=== PATIENT | male | born 1985 | race Asian ===

== ENCOUNTER 2017-03-13 19:19 | Inpatient (IN) | payer SELFPAY ==
[~2017-03-13] VITALS: Ht 172.7 cm; Wt 81.6 kg
--- NOTE | 2017-03-13 19:36 | Emergency Room Report ---
History of Present Illness General Chief Complaint: Abdominal Pain Source: Patient Present Illness [facility] Patient presents with complaints of epigastric abdominal pain Ongoing since Wednesday patient reports that he did have a alcohol binge drinking just before that Denies any diarrhea denies any lower abdominal pain Pain is 8/10 epigastric denies any radiation denies any fevers or chills Patient reports that he has had this before however a past Patient does report heavy drinking intermittently Allergies: Coded Allergies: No Known Allergies (Unverified , 03/13/17) Patient History Past Medical History: see triage record Pertinent Family History: none Reviewed Nursing Documentation: PMH: Agreed, PSxH: Agreed Nursing Documentation-PMH Past Medical History: No Stated History Review of Systems All Other Systems: negative except mentioned in HPI Physical Exam Vital Signs Date Time Temp Pulse Resp B/P (MAP) Pulse Ox O2 Delivery O2 Flow Rate FiO2 03/13/17 19:25 97.9 116 17 144/90 98 Room Air Sp02 EP Interpretation: reviewed, normal General Appearance: no apparent distress Head: normocephalic, atraumatic Eyes: bilateral eye PERRL, bilateral eye EOMI ENT: hearing grossly normal, normal pharynx, TMs + canals normal, uvula midline Neck: full range of motion, supple, no meningismus, no bony tend Respiratory: lungs clear, normal breath sounds, no rhonchi, no respiratory distress, no retraction, no accessory muscle use Cardiovascular #1: normal peripheral pulses, regular rate, rhythm, no edema, no gallop, no JVD, no murmur Gastrointestinal: normal bowel sounds, soft, no mass, no organomegaly, non- distended, no guarding, no hernia, no pulsatile mass, no rebound, tenderness - epigastric region Genitourinary: no CVA tenderness Musculoskeletal: normal inspection Neurologic: oriented x3, responsive, institute scientist III-XII nml as tested, motor strength/ tone normal, sensory intact Psychiatric: mood/affect normal Skin: no rash, warm/dry, palpation normal, jaundice Lymphatic: normal inspection, no adenopathy Medical Decision Making Diagnostic Impression: Primary Impression: Gallstone pancreatitis ER Course With the history exam and presentation, multiple differentials considered, including but not limited to appendicitis, gastritis, cholecystitis, diverticulitis Patient's blood work reveals elevated liver function test including lipase which raises concern of biliary of traction CAT scan also reveals evidence of pancreatitis Ultrasound will be obtained as inpatient patient requires a GI consultation and further care Labs Test 03/13/17 19:48 White Blood Count 8.1 K/UL (4.8-10.8) Red Blood Count 4.82 M/UL (4.70-6.10) Hemoglobin 15.1 G/DL (14.2-18.0) Hematocrit 46.6 % (42.0-52.0) Mean Corpuscular Volume 97 FL (80-99) Mean Corpuscular Hemoglobin 31.4 PG (27.0-31.0) Mean Corpuscular Hemoglobin Concent 32.5 G/DL (32.0-36.0) Red Cell Distribution Width 11.9 % (11.6-14.8) Platelet Count 199 K/UL (150-450) Mean Platelet Volume 5.6 FL (6.5-10.1) Neutrophils (%) (Auto) 79.2 % (45.0-75.0) Lymphocytes (%) (Auto) 13.9 % (20.0-45.0) Monocytes (%) (Auto) 6.2 % (1.0-10.0) Eosinophils (%) (Auto) 0.1 % (0.0-3.0) Basophils (%) (Auto) 0.6 % (0.0-2.0) Prothrombin Time 11.7 SEC (9.30-11.50) Prothromb Time International Ratio 1.1 (0.9-1.1) Activated Partial Thromboplast Time 27 SEC (23-33) Sodium Level 135 MMOL/L (136-145) Potassium Level 3.5 MMOL/L (3.5-5.1) Chloride Level 98 MMOL/L (98-107) Carbon Dioxide Level 26 MMOL/L (21-32) Anion Gap 11 mmol/L (5-15) Blood Urea Nitrogen 16 mg/dL (7-18) Creatinine 1.1 MG/DL (0.55-1.30) Estimat Glomerular Filtration Rate > 60 mL/min (>60) Glucose Level 177 MG/DL (74-106) Calcium Level 8.9 MG/DL (8.5-10.1) Total Bilirubin 1.7 MG/DL (0.2-1.0) Direct Bilirubin 1.0 MG/DL (0.0-0.3) Aspartate Amino Transf (AST/SGOT) 161 U/L (15-37) Alanine Aminotransferase (ALT/SGPT) 125 U/L (12-78) Alkaline Phosphatase 216 U/L (46-116) Total Protein 7.6 G/DL (6.4-8.2) Albumin 3.2 G/DL (3.4-5.0) Globulin 4.4 g/dL Albumin/Globulin Ratio 0.7 (1.0-2.7) Lipase 17925 U/L (73-393) CT/MRI/US Diagnostic Results CT/MRI/US Diagnostic Results : Impression CT abdomen pelvis: Findings consistent with an acute appendicitis, edematous changes within the uncinate process moderate volume of. Pancreatic free fluid mild diffuse hepatic steatosis nondistended gallbladder Last Vital Signs Date Time Temp Pulse Resp B/P (MAP) Pulse Ox O2 Delivery O2 Flow Rate FiO2 03/13/17 19:25 97.9 116 17 144/90 98 Room Air Status: improved Disposition: ADMITTED INPATIENT Condition: Serious MIC OCHOA D.O. Mar 13, 2017 19:36
[2017-03-13] MEDS ORDERED: Metoclopramide 10mg/2ml Inj IVP ONE (19:45)
[2017-03-13] MEDS ORDERED: Morphine Sulfate 4mg/ml Inj IVP ONE (19:45)
[2017-03-13] MEDS ORDERED: Tubing IV Cassette IV ONE (19:51)
[2017-03-13 19:57] LABS: BASOPHILS % (AUTO) 0.6 % (0.0-2.0); EOSINOPHILS % (AUTO) 0.1 % (0.0-3.0); LYMPHOCYTES % (AUTO) 13.9 % (20.0-45.0); MEAN CORPUSCULAR HEMOGLOBIN 31.4 PG (27.0-31.0); MEAN CORPUSCULAR HGB CONC 32.5 G/DL (32.0-36.0); MEAN CORPUSCULAR VOLUME 97 FL (80-99); MEAN PLATELET VOLUME 5.6 FL (6.5-10.1); MONOCYTES % (AUTO) 6.2 % (1.0-10.0); NEUTROPHILS % (AUTO) 79.2 % (45.0-75.0); PLATELET COUNT 199 K/UL (150-450); RED BLOOD COUNT 4.82 M/UL (4.70-6.10); RED CELL DISTRIBUTION WIDTH 11.9 % (11.6-14.8); WHITE BLOOD COUNT 8.1 K/UL (4.8-10.8)
[2017-03-13 20:07] LABS: ANION GAP 11 mmol/L (5-15); CALCIUM 8.9 MG/DL (8.5-10.1); CARBON DIOXIDE 26 MMOL/L (21-32); CHLORIDE 98 MMOL/L (98-107); CREATININE 1.1 MG/DL (0.55-1.30); GLOMERULAR FILTRATION RATE > 60 mL/min (>60); POTASSIUM 3.5 MMOL/L (3.5-5.1); SODIUM 135 MMOL/L (136-145)
[2017-03-13 20:11] LABS: INR 1.1 (0.9-1.1); PROTHROMBIN TIME 11.7 SEC (9.30-11.50)
[2017-03-13 20:18] LABS: ALANINE AMINOTRANSFERASE 125 U/L (12-78); ALBUMIN/GLOBULIN RATIO 0.7 (1.0-2.7); ASPARTATE AMINO TRANSFERASE 161 U/L (15-37); LIPASE 12702 U/L (73-393); TOTAL PROTEIN 7.6 G/DL (6.4-8.2)
[2017-03-13 21:30] VITALS: BP 138/91
[2017-03-13] MEDS ORDERED: Zosyn 2.25gm inj IV ONE (21:45)
[2017-03-13] MEDS ORDERED: Piperacillin/Tazobactam 3.375 GM in D5W 110 ML IVPB ONE (23:00)
[2017-03-13] MEDS ORDERED: Zosyn 3.375gm inj ONE (23:15)
[2017-03-13 23:31] VITALS: BP 139/98
[2017-03-14] VITALS (7 sets, daily range): BP systolic 136–144; BP diastolic 81–93
[2017-03-14] MEDS ORDERED: Metoclopramide 10mg/2ml Inj IVP PRN (00:30)
[2017-03-14] MEDS ORDERED: D5NS 1,000 ML IV SCH (01:00)
[2017-03-14] MEDS: Morphine Sulfate 4mg/ml Inj IVP PRN ×2 (01:16→09:27)
--- NOTE | 2017-03-14 06:49 | General Progress Note ---
Assessment/Plan Problem List: (1) ETOH abuse ICD Codes: F10.10 - Alcohol abuse, uncomplicated SNOMED: 59626181 (2) Pancreatitis ICD Codes: K85.90 - Acute pancreatitis without necrosis or infection, unspecified SNOMED: 14924968 (3) Elevated LFTs ICD Codes: R79.89 - Other specified abnormal findings of blood chemistry SNOMED: 350765569, 782751547 Assessment/Plan npo ivf increase to 125 abd us bananabag fu labs Subjective ROS Limited/Unobtainable: Yes Allergies: Coded Allergies: No Known Allergies (Unverified , 03/13/17) Subjective abd pain Objective Last 24 Hour Vital Signs Date Time Temp Pulse Resp B/P (MAP) Pulse Ox O2 Delivery O2 Flow Rate FiO2 03/14/17 04:00 97.7 89 21 140/90 100 03/14/17 00:00 99.1 85 21 137/84 98 03/13/17 23:31 98.3 92 16 138/91 97 Room Air 03/13/17 23:31 92 19 139/98 98 Room Air 03/13/17 21:30 98.3 86 16 138/91 97 Room Air 03/13/17 20:22 97.8 03/13/17 19:25 97.9 116 17 144/90 98 Room Air Laboratory Tests 03/13/17 19:48: White Blood Count 8.1, Red Blood Count 4.82, Hemoglobin 15.1, Hematocrit 46.6, Mean Corpuscular Volume 97, Mean Corpuscular Hemoglobin 31.4H, Mean Corpuscular Hemoglobin Concent 32.5, Red Cell Distribution Width 11.9, Platelet Count 199, Mean Platelet Volume 5.6L, Neutrophils (%) (Auto) 79.2H, Lymphocytes (%) (Auto) 13.9L, Monocytes (%) (Auto) 6.2, Eosinophils (%) (Auto) 0.1, Basophils (%) (Auto ) 0.6, Prothrombin Time 11.7H, Prothromb Time International Ratio 1.1, Activated Partial Thromboplast Time 27, Sodium Level 135L, Potassium Level 3.5, Chloride Level 98, Carbon Dioxide Level 26, Anion Gap 11, Blood Urea Nitrogen 16 , Creatinine 1.1, Estimat Glomerular Filtration Rate > 60, Glucose Level 177H, Calcium Level 8.9, Total Bilirubin 1.7H, Direct Bilirubin 1.0H, Aspartate Amino Transf (AST/SGOT) 161H, Alanine Aminotransferase (ALT/SGPT) 125H, Alkaline Phosphatase 216H, Total Protein 7.6, Albumin 3.2L, Globulin 4.4, Albumin/ Globulin Ratio 0.7L, Lipase 89025D Height (Feet): 5 Height (Inches): 8.00 Weight (Pounds): 180 General Appearance: alert EENT: normal ENT inspection Neck: supple Cardiovascular: normal rate Respiratory/Chest: lungs clear Abdomen: normal bowel sounds, non tender, soft Extremities: non-tender AARON NELSON Mar 14, 2017 06:49
[2017-03-14 08:05] LABS: BASOPHILS % (AUTO) 0.4 % (0.0-2.0); EOSINOPHILS % (AUTO) 0.2 % (0.0-3.0); LYMPHOCYTES % (AUTO) 19.5 % (20.0-45.0); MEAN CORPUSCULAR HEMOGLOBIN 33.7 PG (27.0-31.0); MEAN CORPUSCULAR HGB CONC 34.2 G/DL (32.0-36.0); MEAN CORPUSCULAR VOLUME 98 FL (80-99); MEAN PLATELET VOLUME 6.5 FL (6.5-10.1); MONOCYTES % (AUTO) 5.5 % (1.0-10.0); NEUTROPHILS % (AUTO) 74.4 % (45.0-75.0); PLATELET COUNT 154 K/UL (150-450); RED BLOOD COUNT 4.33 M/UL (4.70-6.10); RED CELL DISTRIBUTION WIDTH 12.1 % (11.6-14.8); WHITE BLOOD COUNT 7.4 K/UL (4.8-10.8)
[2017-03-14 08:37] LABS: ALANINE AMINOTRANSFERASE 95 U/L (12-78); ALBUMIN/GLOBULIN RATIO 0.7 (1.0-2.7); ANION GAP 7 mmol/L (5-15); ASPARTATE AMINO TRANSFERASE 104 U/L (15-37); CALCIUM 8.3 MG/DL (8.5-10.1); CARBON DIOXIDE 28 MMOL/L (21-32); CHLORIDE 100 MMOL/L (98-107); CHOLESTEROL 400 MG/DL (< 200); CHOLESTEROL/HDL RATIO 18.2 (3.3-4.4); GLOMERULAR FILTRATION RATE > 60 mL/min (>60); LIPASE 5008 U/L (73-393); POTASSIUM 3.7 MMOL/L (3.5-5.1); SODIUM 135 MMOL/L (136-145); THYROID STIMULATING HORMONE 1.239 uiU/mL (0.358-3.740); TOTAL PROTEIN 6.9 G/DL (6.4-8.2)
[2017-03-14 08:38] LABS: BILIRUBIN,DIRECT 0.8 MG/DL (0.0-0.3); HEMOGLOBIN A1C 6.6 % (4.3-6.0)
--- NOTE | 2017-03-14 08:43 | Diagnostic Imaging Report ---
Indication: Upper abdominal pain Technique: CT scan of the abdomen and pelvis was performed from the diaphragms to the symphysis pubis with intravenous contrast material only per specific request of the ordering physician.. 5 mm sections were generated. Axial, coronal, and sagittal images are presented. Dose: Total Dose Length Product - DLP [address] Dose Index - CTDIvol(s) 14.12 mGy. Automated exposure control was utilized for dose reduction. Comparison: None Findings: The liver is diffusely low density and slightly enlarged. The spleen is unremarkable. The gallbladder is normal. There is fluid around the pancreas and enlargement of the pancreas. Fluid is also noted in the lesser sac. There is no clearly defined wall. Inflammatory change extends inferiorly on the left in the anterior pararenal compartment. Adrenal glands are normal. The kidneys are unremarkable. Aorta and inferior vena cava are normal caliber. Fluid is also noted around the duodenum. The duodenum is slightly dilated. Fluid also is seen in the transverse mesocolon. Fluid filled small bowel are noted in the left side of the abdomen. The colon is normal. The bladder is unremarkable. Prostate and seminal vesicles are normal. Impression: Findings consistent with acute pancreatitis. Considerable peripancreatic fluid and fluid in the lesser sac and the transverse music colon. No defined pseudocyst at this time. Hepatic steatosis. The above report is concordant with preliminary reading by [employer] . The CT scanner at [facility] is accredited by the [employer] and the scans are performed using protocols designed to limit radiation exposure to as low as reasonably achievable to attain images of sufficient resolution adequate for diagnostic evaluation.
[2017-03-14] MEDS: [UNRECOGNIZED DRUG - OTHER] IV SCH (08:49)
[2017-03-14] MEDS: FOLIC ACID IV SCH (08:49)
[2017-03-14] MEDS: THIAMINE HCL IV SCH (08:49)
[2017-03-14] MEDS: MULTIVITAMIN IV SCH (08:49)
[2017-03-14] MEDS: Heparin 5000 units/ml inj SUBQ SCH ×2 (08:51→20:21)
--- NOTE | 2017-03-14 09:26 | History & Physical ---
History and Physical History & Physicial seen and examined. Dict completed Gabe Gomes MD Mar 14, 2017 09:26
[2017-03-14] MEDS ORDERED: Tubing IV Secondary IV ONE (16:16)
[2017-03-14] MEDS: D5NS 1,000 ML IV SCH (17:00)
--- NOTE | 2017-03-14 20:15 | History and Physical Report ---
DATE OF ADMISSION: 03/13/2017 SOURCE OF INFORMATION: The patient and EMR. HISTORY OF PRESENT ILLNESS: The patient is a very young 32-year-old [place] male. The patient is complaining of increasing epigastric abdominal pain for the last couple of days. 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 The patient denies any nausea, vomitus, any diarrhea or constipation. The patient denies any trauma. Denies any abnormal bleeding. MEDICATIONS: Hospital medication including, but not limited to thiamine, ranitidine, morphine sulfate, and magnesium sulfate. ALLERGIES: NKDA. SOCIAL HISTORY: The patient living by his friends. The patient is and children back in [place]. The patient denies history of illicit drug abuse, smoking or alcohol abuse. REVIEW OF SYSTEMS: All 12 elements of review of systems reviewed with the patient. The patient pertinent positive and negative as above. PHYSICAL EXAMINATION: VITAL SIGNS: Blood pressure 138/90, temperature 98.2 degrees, pulse oximetry 98% on room air, and pulse rate 80 to 90. HEAD AND NECK: Atraumatic and normocephalic. CHEST: Clear to auscultation. HEART: S1 and S2. Regular rate and rhythm. ABDOMEN: Soft. Positive for tenderness on deep palpation. NEUROLOGY: The patient is awake, alert, and oriented x3. LABORATORY AND DIAGNOSTIC DATA: A CT scan of the abdomen shows acute pancreatitis, hepatic steatosis. Labs dated 03/14/2017 shows WBC of 7.4, hemoglobin 14.6, and platelets of 154. Sodium 135, potassium 3.7, BUN 8, and creatinine 1. A1c 6.6. Total bilirubin 1.5 and direct bilirubin 0.8. AST 100, ALT 95, triglyceride of 432, LDL of 191. Lipase of 5000. ASSESSMENT: 1. Acute pancreatitis. 2. Hepatobiliary obstruction. 3. Alcoholism. 4. Prediabetes/diabetes. 5. Hyponatremia. PLAN OF CARE: We will keep the patient NPO. Gastrointestinal, Dr. Dunn was consulted. Continue with supportive vitamin management per GI. Gabe Gomes M.D. DR: CORETTA JOB#: [id number] CC:
[2017-03-15] MEDS: D5NS 1,000 ML IV SCH ×2 (01:15→10:43)
[2017-03-15] MEDS: Morphine Sulfate 4mg/ml Inj IVP PRN (03:14)
[2017-03-15 04:00] VITALS: BP 129/89
[2017-03-15 06:43] LABS: BASOPHILS % (AUTO) 0.6 % (0.0-2.0); EOSINOPHILS % (AUTO) 0.6 % (0.0-3.0); LYMPHOCYTES % (AUTO) 18.6 % (20.0-45.0); MEAN CORPUSCULAR HEMOGLOBIN 33.8 PG (27.0-31.0); MEAN CORPUSCULAR HGB CONC 33.8 G/DL (32.0-36.0); MEAN CORPUSCULAR VOLUME 100 FL (80-99); MEAN PLATELET VOLUME 6.7 FL (6.5-10.1); MONOCYTES % (AUTO) 5.7 % (1.0-10.0); NEUTROPHILS % (AUTO) 74.6 % (45.0-75.0); PLATELET COUNT 141 K/UL (150-450); RED BLOOD COUNT 4.54 M/UL (4.70-6.10); RED CELL DISTRIBUTION WIDTH 12.3 % (11.6-14.8); WHITE BLOOD COUNT 9.7 K/UL (4.8-10.8)
[2017-03-15 07:11] LABS: ALANINE AMINOTRANSFERASE 80 U/L (12-78); ALBUMIN/GLOBULIN RATIO 0.6 (1.0-2.7); ANION GAP 6 mmol/L (5-15); ASPARTATE AMINO TRANSFERASE 78 U/L (15-37); CALCIUM 9.1 MG/DL (8.5-10.1); CARBON DIOXIDE 30 MMOL/L (21-32); CHLORIDE 96 MMOL/L (98-107); GLOMERULAR FILTRATION RATE > 60 mL/min (>60); LIPASE 2807 U/L (73-393); SODIUM 132 MMOL/L (136-145); TOTAL PROTEIN 7.3 G/DL (6.4-8.2)
[2017-03-15 08:15] VITALS: BP 128/76
[2017-03-15] MEDS: THIAMINE HCL IV SCH (10:35)
[2017-03-15] MEDS: FOLIC ACID IV SCH (10:35)
[2017-03-15] MEDS: Heparin 5000 units/ml inj SUBQ SCH (10:35)
[2017-03-15] MEDS: [UNRECOGNIZED DRUG - OTHER] IV SCH (10:35)
[2017-03-15] MEDS: MULTIVITAMIN IV SCH (10:35)
--- NOTE | 2017-03-15 11:11 | GI Progress Note ---
Subjective Subjective abdominal pain improved, resolved wants to go home Objective Last 24 Hour Vital Signs Date Time Temp Pulse Resp B/P (MAP) Pulse Ox O2 Delivery O2 Flow Rate FiO2 03/15/17 08:15 98.4 104 20 128/76 98 Room Air 03/15/17 04:00 98.8 96 21 129/89 97 03/15/17 03:48 99.0 03/15/17 00:00 Room Air 03/14/17 21:00 99.0 83 22 136/92 97 03/14/17 20:00 Room Air 03/14/17 20:00 99.0 83 22 136/92 97 03/14/17 16:13 97.1 92 22 143/93 99 Room Air 03/14/17 12:03 98.0 80 21 138/81 97 Room Air Laboratory Tests Test 03/15/17 05:10 White Blood Count 9.7 K/UL (4.8-10.8) Red Blood Count 4.54 M/UL (4.70-6.10) L Hemoglobin 15.3 G/DL (14.2-18.0) Hematocrit 45.3 % (42.0-52.0) Mean Corpuscular Volume 100 FL (80-99) H Mean Corpuscular Hemoglobin 33.8 PG (27.0-31.0) H Mean Corpuscular Hemoglobin Concent 33.8 G/DL (32.0-36.0) Red Cell Distribution Width 12.3 % (11.6-14.8) Platelet Count 141 K/UL (150-450) L Mean Platelet Volume 6.7 FL (6.5-10.1) Neutrophils (%) (Auto) 74.6 % (45.0-75.0) Lymphocytes (%) (Auto) 18.6 % (20.0-45.0) L Monocytes (%) (Auto) 5.7 % (1.0-10.0) Eosinophils (%) (Auto) 0.6 % (0.0-3.0) Basophils (%) (Auto) 0.6 % (0.0-2.0) Sodium Level 132 MMOL/L (136-145) L Potassium Level 4.0 MMOL/L (3.5-5.1) Chloride Level 96 MMOL/L (98-107) L Carbon Dioxide Level 30 MMOL/L (21-32) Anion Gap 6 mmol/L (5-15) Blood Urea Nitrogen 7 mg/dL (7-18) Creatinine 1.0 MG/DL (0.55-1.30) Estimat Glomerular Filtration Rate > 60 mL/min (>60) Glucose Level 98 MG/DL (74-106) Calcium Level 9.1 MG/DL (8.5-10.1) Total Bilirubin 2.1 MG/DL (0.2-1.0) H Direct Bilirubin 1.0 MG/DL (0.0-0.3) H Aspartate Amino Transf (AST/SGOT) 78 U/L (15-37) H Alanine Aminotransferase (ALT/SGPT) 80 U/L (12-78) H Alkaline Phosphatase 232 U/L (46-116) H Total Protein 7.3 G/DL (6.4-8.2) Albumin 2.8 G/DL (3.4-5.0) L Globulin 4.5 g/dL Albumin/Globulin Ratio 0.6 (1.0-2.7) L Amylase Level 311 U/L (25-115) H Lipase 2807 U/L (73-393) H Height (Feet): 5 Height (Inches): 8.00 Weight (Pounds): 180 General Appearance: WD/WN, no apparent distress, alert Cardiovascular: normal rate Respiratory/Chest: normal breath sounds, no respiratory distress Abdominal Exam: normal bowel sounds, non tender, soft Extremities: normal range of motion, non-tender Objective CT AP reviewed >> acute pancreatitis banana x 1 cont IVF's @ 125 low fat FLD, adv as tolerated H2B pain mgmt fu abd us fu labs, lipase Sandra Gonzales N.P. Mar 15, 2017 11:11
--- NOTE | 2017-03-15 11:18 | General Progress Note ---
Assessment/Plan Status: stable Assessment/Plan 1. Acute pancreatitis. 2. Hepatobiliary obstruction. 3. Alcoholism. 4. Prediabetes/diabetes. 5. Hyponatremia. Plan: current GI plan of care Subjective ROS Limited/Unobtainable: No Constitutional: Reports: malaise HEENT: Reports: no symptoms Cardiovascular: Reports: no symptoms Respiratory: Reports: no symptoms Allergies: Coded Allergies: No Known Allergies (Unverified , 03/13/17) Objective Last 24 Hour Vital Signs Date Time Temp Pulse Resp B/P (MAP) Pulse Ox O2 Delivery O2 Flow Rate FiO2 03/15/17 08:15 98.4 104 20 128/76 98 Room Air 03/15/17 04:00 98.8 96 21 129/89 97 03/15/17 03:48 99.0 03/15/17 00:00 Room Air 03/14/17 21:00 99.0 83 22 136/92 97 03/14/17 20:00 Room Air 03/14/17 20:00 99.0 83 22 136/92 97 03/14/17 16:13 97.1 92 22 143/93 99 Room Air 03/14/17 12:03 98.0 80 21 138/81 97 Room Air Laboratory Tests 03/15/17 05:10: White Blood Count 9.7, Red Blood Count 4.54L, Hemoglobin 15.3, Hematocrit 45.3, Mean Corpuscular Volume 100H, Mean Corpuscular Hemoglobin 33.8H, Mean Corpuscular Hemoglobin Concent 33.8, Red Cell Distribution Width 12.3, Platelet Count 141L, Mean Platelet Volume 6.7, Neutrophils (%) (Auto) 74.6, Lymphocytes ( %) (Auto) 18.6L, Monocytes (%) (Auto) 5.7, Eosinophils (%) (Auto) 0.6, Basophils (%) (Auto) 0.6, Sodium Level 132L, Potassium Level 4.0, Chloride Level 96L, Carbon Dioxide Level 30, Anion Gap 6, Blood Urea Nitrogen 7, Creatinine 1.0, Estimat Glomerular Filtration Rate > 60, Glucose Level 98, Calcium Level 9.1, Total Bilirubin 2.1H, Direct Bilirubin 1.0H, Aspartate Amino Transf (AST/SGOT) 78H, Alanine Aminotransferase (ALT/SGPT) 80H, Alkaline Phosphatase 232H, Total Protein 7.3, Albumin 2.8L, Globulin 4.5, Albumin/ Globulin Ratio 0.6L, Amylase Level 311H, Lipase 2807H Height (Feet): 5 Height (Inches): 8.00 Weight (Pounds): 180 General Appearance: no apparent distress EENT: PERRL/EOMI Neck: supple Cardiovascular: normal rate Respiratory/Chest: lungs clear Abdomen: soft Extremities: non-tender Neurologic: environmental program manager II-XII grossly normal Gabe Gomes MD Mar 15, 2017 11:18
[2017-03-15 12:15] VITALS: BP 118/65
[2017-03-15] MEDS ORDERED: D5NS 1000ml IV ONE ×2 (13:50)
[2017-03-15] MEDS ORDERED: Tubing IV Secondary IV ONE (13:50)
--- NOTE | 2017-03-15 15:51 | Diagnostic Imaging Report ---
Indication: Epigastric abdominal pain, history of diverticulitis Technique: Jay-scale and duplex images of the upper abdomen were obtained Comparison: Reference made to CT scan 03/13/2017 Findings: Gallbladder is unremarkable, without stones, wall thickening, nor pericholecystic fluid. Sonographic Polk's sign is negative. Common bile duct measures 5 mm in diameter. No intrahepatic biliary ductal dilatation. Liver demonstrates diffusely increased echogenicity, consistent with diffuse hepatocellular disease, most likely fatty change. Area of focal sparing is seen in the usual location. Portal vein and hepatic veins are patent. Pancreas is enlarged Spleen is unremarkable. Left kidney measures 11.4 cm in length. Right kidney measures 12.2 cm length. Both kidneys demonstrate normal echogenicity. There is no hydronephrosis. No focal abnormality . Abdominal aorta is partially obscured by bowel gas, visualized portions are non-aneurysmal . There is trace free intraperitoneal fluid Impression: Negative for gallstones or dilated ducts Liver demonstrates diffusely increased echogenicity, consistent with fatty change described on recent CT scan Enlarged pancreas, likely related to previously described pancreatitis. Trace free intraperitoneal fluid
--- NOTE | 2017-03-16 19:07 | Discharge Summary ---
Discharge Summary Hospital Course Date of Admission Mar 13, 2017 at 21:12 Date of Discharge Mar 15, 2017 at 13:51 Admitting Diagnosis gallstone pancreatitis HPI Laci Whitaker is a 32 year old male who was admitted on Mar 13, 2017 at 21:12 for Gallstone Pancreatitis Hospital Course dc summary #[id number] Discharge Discharge Disposition Patient signed AMA Discharge Diagnoses: Discharge Instructions Discharge Instructions Special Instructions I have been assigned to complete a D/C Summary on this account. I was not involved in the patient management Crystal Mercado NP (Vanchtein) Mar 16, 2017 19:07
--- NOTE | 2017-03-17 07:15 | Discharge Summary 2 SIG ---
DATE OF ADMISSION: 03/13/2017 DATE OF SIGNING AGAINST MEDICAL ADVICE: 03/15/2017 REASON FOR ADMISSION: 32-year-old male with a history of alcohol abuse, presented with complaint of epigastric abdominal pain. The patient admitted to have alcoholic binge drinking for the last few days. He denied diarrhea. Denied lower abdominal pain. Pain was described as epigastric. No radiation. No fever. No chills. The patient had similar symptoms in the past. Vital signs revealed tachycardia -116 and blood pressure -144/90. No leukocytosis. Stable hemoglobin and hematocrit. Lipase - 12,702. AST -161 and ALT -125. Total bilirubin -1.7 and direct bilirubin -1.0. CT of the abdomen and pelvis revealed acute pancreatitis, considerable peripancreatic fluid and fluid in the lesser sac. Hepatic steatosis. The patient was admitted with acute pancreatitis and elevated liver enzymes. HOSPITAL COURSE: The patient was admitted. The patient was kept NPO. The patient was started on generous IV hydration. GI consult was requested. Abdominal ultrasound subsequently was done and revealed enlarged pancreas, likely related to previously described pancreatitis, trace free intraperitoneal fluid. Liver demonstrated diffusely increased echogenicity consistent with fatty changes. Negative for gallstones or dilated ducts. Pain management was provided. Antiemetic provided as needed. The patient was started on banana bag. Laboratory workup revealed evidence of diabetes. Hemoglobin A1c - 6.6. Lipid panel revealed elevated triglycerides - 432, elevated total cholesterol - 400, and LDL- 191. LFT and lipase were trending down. On 03/15/2017, lipase down to 2807 from initial 12,702. AST down to 78 and ALT down to 80. However, total bilirubin increased to 2.1 and direct bilirubin stayed the same. The patient stated that he felt better and wanted to sign against medical advice. The risks and consequences of signing against medical advice were discussed with the patient. Nevertheless, the patient signed the form and left. FINAL DIAGNOSES: 1. Acute pancreatitis. 2. ETOH abuse 3. Elevated liver function tests. 4. Possible hepatobiliary obstruction. 5. Prediabetes/diabetes. Mohammad Rezvani, M.D. I have been assigned to dictate discharge summary on this account and I was not involved in the patient's management. Crystal Mercado N.P. (Vanchtein) DR: KODAK JOB#: [id number] CC: ANDRE
== END 2017-03-15 13:51 | disposition left against medical advice (07) | DRG 438 ==
LOC: EMR 19:46 → 4E 21:12 → EDBEDREQ 21:22
DX: K85.90 Acute pancreatitis without necrosis or infection, unspecified (principal); K83.1 Obstruction of bile duct; E87.1 Hypo-osmolality and hyponatremia; F10.20 Alcohol dependence, uncomplicated; R79.89 Other specified abnormal findings of blood chemistry; R73.03 Prediabetes; E11.9 Type 2 diabetes mellitus without complications
CPT/HCPCS: 36415; 74177; 76700; 80053; 80061; 82150; 82248; 83036; 83690; 84443; 85025; 85610; 85730; 99285; J2765